=== PATIENT | female | born 1995 | race Two or more races ===

== ENCOUNTER 2016-08-21 22:06 | Emergency (ER) | payer MEDICAID ==
[2016-08-21 22:30] VITALS: BP 117/72
--- NOTE | 2016-08-22 08:10 | EKG REPORT ---
SEVERITY:- NORMAL ECG - SINUS RHYTHM : Confirmed by: Rod De La Fuente MD 22-Aug-2016 08:09:40
== END 2016-08-21 23:01 | disposition left against medical advice (07) ==
LOC: ER 22:06
DX: Z53.21 Procedure and treatment not carried out due to patient leaving prior to being seen by health care provider (principal)
CPT/HCPCS: 93005; 93010

== ENCOUNTER 2019-10-19 00:06 | Emergency (ER) | payer MEDICAID ==
[2019-10-19] MEDS ORDERED: ONDANSETRON 4 MG TAB.RAPDIS PO ONE (00:29)
[2019-10-19] MEDS ORDERED: ONDANSETRON HCL INJ/PF 4 MG/2 ML SDV IV ONE (01:06)
[2019-10-19] MEDS ORDERED: NORMAL SALINE 1000 ML 1,000 ML IV ONE (01:06)
[2019-10-19 01:18] LABS: ABSOLUTE BASOPHILS # (AUTO) 0.1 10^3/uL (0.0-0.2); ABSOLUTE EOSINOPHILS # (AUTO) 0.1 10^3/uL (0.0-0.6); ABSOLUTE LYMPHOCYTES (AUTO) 2.9 10^3/uL (0.5-4.7); ABSOLUTE MONOCYTES (AUTO) 0.5 10^3/uL (0.1-1.4); ABSOLUTE NEUT (AUTO) 5.2 10^3/uL (1.7-8.2); BASOPHILS % (AUTO) 0.7 % (0-2); EOSINOPHILS % (AUTO) 1.4 % (0-6); HEMATOCRIT 37.2 % (36.0-47.0); HEMOGLOBIN 12.9 g/dL (12.0-15.5); LYMPHOCYTES % (AUTO) 33.4 % (13-45); MEAN CORPUSCULAR HEMOGLOBIN 30.9 pg (27.0-33.4); MEAN CORPUSCULAR HGB CONC 34.7 g/dL (32.0-36.0); MEAN CORPUSCULAR VOLUME 89 fl (80-97); MONOCYTES % (AUTO) 5.9 % (3-13); PLATELET COUNT 195 10^3/uL (150-450); RED BLOOD COUNT 4.19 10^6/uL (3.72-5.28); RED CELL DISTRIBUTION WIDTH 13.9 % (11.5-14.0); SEGMENTED NEUTROPHILS % (AUTO) 58.6 % (42-78); TOTAL CELLS COUNTED % (AUTO) 100 %; WHITE BLOOD COUNT 8.8 10^3/uL (4.0-10.5)
[2019-10-19 01:38] LABS: ALBUMIN 4.4 g/dL (3.5-5.0); ALKALINE PHOSPHATASE 84 U/L (38-126); ANION GAP 17 (5-19); ASPARTATE AMINO TRANSFERASE 29 U/L (14-36); BILIRUBIN,DIRECT 0.3 mg/dL (0.0-0.4); BILIRUBIN,TOTAL 0.4 mg/dL (0.2-1.3); BLOOD UREA NITROGEN 7 mg/dL (7-20); CALCIUM 8.9 mg/dL (8.4-10.2); CARBON DIOXIDE 20 mmol/L (22-30); CHLORIDE 105 mmol/L (98-107); GLUCOSE 133 mg/dL (75-110); POTASSIUM 3.3 mmol/L (3.6-5.0); TOTAL PROTEIN 7.2 g/dL (6.3-8.2)
--- NOTE | 2019-10-19 03:47 | ER Document Report ---
ED General - General Chief Complaint: ETOH Abuse Stated Complaint: ETOH,VOMITING,POSSIBLE PANIC ATTACK Time Seen by Provider: 10/19/19 03:36 Primary Care Provider: BRIAN HICKS PA-C [Primary Care Provider] - Follow up as needed Information source: Patient Notes: Patient is a 24-year-old female who presents with alcohol intoxication. Per nursing, patient was at a alliance party and drank 2 beers, 2 bootleggers, and a shot of Brain[place] apple mixed with juice. Patient reports that she has been drinking excessively for the past two weeks due to increased stress. Patient reports nausea and fatigue. TRAVEL OUTSIDE OF THE [place] IN LAST 30 DAYS: No - Related Data Allergies/Adverse Reactions: No Known Allergies Allergy (Verified 08/21/16 22:26) Home Medications: zoloft. abilify Past Medical History - General Information source: Patient - Social History Smoking Status: Current Some Day Smoker Chew tobacco use (# tins/day): No Frequency of alcohol use: Heavy Drug Abuse: None Family History: Reviewed & Not Pertinent - Past Medical History Cardiac Medical History: Denies: Hx Coronary Artery Disease, Hx Heart Attack, Hx Hypertension Pulmonary Medical History: Denies: Hx Asthma - allergies, Hx Bronchitis, Hx COPD, Hx Pneumonia Neurological Medical History: Denies: Hx Cerebrovascular Accident, Hx Seizures Renal/ Medical History: Denies: Hx Peritoneal Dialysis Musculoskeletal Medical History: Denies Hx Arthritis Psychiatric Medical History: Reports: Hx Anxiety, Hx Depression - Immunizations Hx Diphtheria, Pertussis, Tetanus Vaccination: Yes Review of Systems - Review of Systems Constitutional: See HPI EENT: No symptoms reported Cardiovascular: No symptoms reported Respiratory: No symptoms reported Gastrointestinal: See HPI Genitourinary: No symptoms reported Female Genitourinary: No symptoms reported Musculoskeletal: No symptoms reported Skin: No symptoms reported Hematologic/Lymphatic: No symptoms reported Neurological/Psychological: No symptoms reported Physical Exam - Vital signs Vitals: Temp Pulse Resp BP Pulse Ox 98.3 F 100 18 148/104 H 96 10/19/19 00:15 10/19/19 00:15 10/19/19 00:15 10/19/19 00:15 10/19/19 00:15 - Notes Notes: PHYSICAL EXAMINATION: GENERAL: Well-appearing, well-nourished and in no acute distress. Patient is in and out of sleep. HEAD: Atraumatic, normocephalic. EYES: Pupils equal round and reactive to light, extraocular movements intact, sclera anicteric, conjunctiva are normal. ENT: nares patent, oropharynx clear without exudates. Moist mucous membranes. NECK: Normal range of motion, supple without lymphadenopathy LUNGS: Breath sounds clear to auscultation bilaterally and equal. No wheezes rales or rhonchi. HEART: Regular rate and rhythm without murmurs ABDOMEN: Soft, nontender, normoactive bowel sounds. No guarding, no rebound. No masses appreciated. EXTREMITIES: Normal range of motion, no pitting or edema. No cyanosis. NEUROLOGICAL: No focal neurological deficits. Moves all extremities spontaneously and on command. Speech is clear and she answers all questions appropriately. PSYCH: Normal mood, normal affect. SKIN: Warm, Dry, normal turgor, no rashes or lesions noted. Course - Re-evaluation Re-evalutation: Patient is a 24-year-old female who presents for alcohol intoxication without any additional acute complaints. Patient admits to heavy alcohol use this evening. No evidence of trauma on exam. She was given Zofran 4mg PO upon arrival to the ED but proceeded to vomit. IV was placed and Zofran 4mg IV was given as was as a bolus of normal saline. Patient is in and out of sleep on exam but answers questions and follows commands appropriately. BMP shows low pot assium of 3.3 and low CO2 of 20 which is consistent with post-vomiting. Patient was monitored in the emergency department until they were clinically sober. Able to ambulate and talking clear sentences prior to discharge. Tolerating oral intake without difficulty. The patient has been instructed to seek help for alcohol detoxification. Will discharge with return precautions and follow- up recommendations. Laboratory 10/19/19 10/19/19 01:02 01:02 WBC 8.8 RBC 4.19 Hgb 12.9 Hct 37.2 MCV 89 MCH 30.9 MCHC 34.7 RDW 13.9 Plt Count 195 Lymph % (Auto) 33.4 Graves % (Auto) 5.9 Eos % (Auto) 1.4 Baso % (Auto) 0.7 Absolute Neuts (auto) 5.2 Absolute Lymphs (auto) 2.9 Absolute Monos (auto) 0.5 Absolute Eos (auto) 0.1 Absolute Basos (auto) 0.1 Seg Neutrophils % 58.6 Sodium 141.8 Potassium 3.3 L Chloride 105 Carbon Dioxide 20 L Anion Gap 17 BUN 7 Creatinine 0.81 Est GFR ( Amer) > 60 Est GFR (MDRD) Non-Af > 60 Glucose 133 H Calcium 8.9 Total Bilirubin 0.4 Direct Bilirubin 0.3 Neonat Total Bilirubin Not Reportable Neonat Direct Bilirubin Not Reportable Neonat Indirect Bili Not Reportable AST 29 ALT 24 Alkaline Phosphatase 84 Total Protein 7.2 Albumin 4.4 - Vital Signs Vital signs: Temp Pulse Resp BP Pulse Ox 97.5 F 82 14 114/65 98 10/19/19 04:28 10/19/19 04:28 10/19/19 04:28 10/19/19 04:28 10/19/19 04:28 - Laboratory Result Diagrams: 10/19/19 01:02 10/19/19 01:02 Laboratory results interpreted by me: 10/19/19 01:02 Potassium 3.3 L Carbon Dioxide 20 L Glucose 133 H Discharge - Discharge Clinical Impression: Alcohol intoxication Qualifiers: Complication of substance-induced condition: uncomplicated Qualified Code(s): F10.920 - Alcohol use, unspecified with intoxication, uncomplicated Vomiting Qualifiers: Vomiting type: unspecified Vomiting Intractability: unspecified Nausea presence: unspecified Qualified Code(s): R11.10 - Vomiting, unspecified Condition: Stable Disposition: HOME, SELF-CARE Additional Instructions: Acute Alcohol Intoxication Your evaluation revealed very high levels of alcohol. You can from drinking a large amount of alcohol rapidly! Further, there's the risk of falls, traffic accidents, and fights. A high portion (about 50 percent) of the serious injuries seen in hospital emergency rooms are caused by alcohol. Alcohol overdosage is usually due to an underlying emotional or psychiatric problem. You may benefit from counselling. If "binge" drinking is an ongoing problem for you, or if you drink ANY AMOUNT of alcohol EVERY day, you most likely have a tendency to alcoholism. You should avoid alcohol totally. We can refer you for treatment. Persons with alcohol problems are often also prone to other addictions -- you should discuss any use of medications or drugs with the doctor. You should be watched at home for the next several hours by someone who has not been drinking. Get extra fluids for the next 24 hours. Call the doctor if there is repeated vomiting, increasing headache, decreasing level of alertness, or any other worsening. Referrals: BRIAN HICKS PA-C [Primary Care Provider] - Follow up as needed
[2019-10-19 04:28] VITALS: BP 114/65
== END 2019-10-19 04:47 | disposition home or self-care (01) ==
LOC: ER 00:06
DX: F10.920 Alcohol use, unspecified with intoxication, uncomplicated (principal); R11.2 Nausea with vomiting, unspecified; F17.200 Nicotine dependence, unspecified, uncomplicated
CPT/HCPCS: 99284; 96361; 96374; 36415; 85025; 80053; S0119; J2405; J7030